=== PATIENT | male | born 1990 | race Native Hawaiian/Other Pacific Islander ===

== ENCOUNTER 2021-03-15 05:22 | Emergency (ER) | payer OTHER ==
[~2021-03-15] VITALS: Ht 177.8 cm; Wt 68.0 kg
[2021-03-15 05:31] VITALS: TEMP 97.9
[2021-03-15 06:08] LABS: PLATELET COUNT 299 K/uL (142-355)
[2021-03-15 07:23] VITALS: BP 132/74
== END 2021-03-15 07:23 | disposition home or self-care (01) ==
LOC: ED 05:22
PROVIDERS: Family Medicine
DX: N20.0 Calculus of kidney (principal)
CPT/HCPCS: 80053; 81000; 82150; 83690; 85027; 99283